=== PATIENT | male | born 1995 | race African-American/Black ===

== ENCOUNTER 2016-11-20 00:29 | Emergency (ER) | payer SELFPAY ==
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
[2016-11-20 06:26] VITALS: BP 130/87
== END 2016-11-20 06:53 | disposition home or self-care (01) ==
LOC: ED 00:29
DX: F19.10 Other psychoactive substance abuse, uncomplicated (principal)
CPT/HCPCS: 99282

== ENCOUNTER 2017-01-14 11:29 | Emergency (ER) | payer SELFPAY ==
[2017-01-14 12:37] VITALS: BP 144/85
== END 2017-01-14 14:28 | disposition left against medical advice (07) ==
LOC: ED 11:29
DX: K08.89 Other specified disorders of teeth and supporting structures (principal); Z53.21 Procedure and treatment not carried out due to patient leaving prior to being seen by health care provider
CPT/HCPCS: 99281

== ENCOUNTER 2017-12-15 22:44 | Emergency (ER) | payer SELFPAY ==
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
--- NOTE | 2017-12-16 05:45 | ED ---
Progress - Progress Note Progress Note: This is scribe Karl Tapia documenting for attending Sebastián Mauricio MD. Patient is a 22 year old M BIBA to ED with a chief complaint of alcohol intoxication. Patient was signed out from LUIS Chen. I, Dr. Mauricio, personally performed the services described in this documentation as scribed in my presence and it is both accurate and complete. Course/Dx - Diagnoses Provider Diagnoses: Alcohol abuse Discharge - Sign-Out/Discharge Documenting (check all that apply): Sign-Out Patient, Receiving Sign-Out Signing out patient TO: Mago Wynn Receiving patient FROM: Kimberly Woodruff - Waiting for patient to sober up. - Discharge Plan Condition: Stable Referrals: No Primary Care Phys,NOPCP [Primary Care Provider] -
--- NOTE | 2017-12-16 08:03 | ED ---
Progress - Progress Note Progress Note: This is scribe Karl Tapia documenting for attending Sebastián Mauricio MD. Patient is a 22 year old M BIBA to ED with a chief complaint of alcohol intoxication. Patient was signed out from LUIS Chen. I, Dr. Mauricio, personally performed the services described in this documentation as scribed in my presence and it is both accurate and complete. UPDATE: Patient is a sign out from Dr. Yoon. He was brought in by ambulance with complaint of alcohol intoxication via friends who found him passed out on the lawn. He is awake alert and oriented to person place and time since waking. He reports he was drinking Bacardi last night with friends at a house [employer] and was not aware that he had passed out in the lawn. He denies any known injury and denies any pain at this current point in time. Furthermore, he denies suicidal or homicidal ideations and reports his mood is well overall. He lives with his mom, completed and a few years at [employer]. He works at [email or web address] and [employer], smokes 1/2 PPD and uses marijuana. No other health issues to report and no known fam h/o medical issues. Vitals WNL GEN: A&O X 3 HEENT: oral mucosa dry, sclera erythematous ("blood shot"), SANDIP, EOMI and acuity intact, no hemotympanum, no d/c or signs of trauma to face or resp passages CARDIAC: S1/S2, RRR PULM:breathing easily, CTA B/L AB: soft, NT, + BS LUCAS: FROM w/o pain or restriction INTEG: well perfused, no wounds or signs of trauma EXTREMITIES: well perfused, no edema NEURO: CN II-XII grossly intact PSYCH: pleasant, calm, polite, denies SI/HI Dx: ETOH intoxication Course: upon resting for 8.5 hours and tolerating PO liquids, pt is A&0 w/o s/ sx of trauma/infection/psych instability. Condition: stable Dispo: home Course/Dx - Course Course Of Treatment: To 84 Obtained alcohol serum level. Attempted to obtain drug urine screen. Patient was only arousable to pain time of arrival. No nausea vomiting while in ER. Patient was signed out to Dr Mauricio at shift change pending patient alcohol seurm level to decrease as it was 284, and become sober enough to go home. No signs of trauma or other signs of injury requiring further work up at this time however pending patient's wake up may need further attention if has any complaints. - Diagnoses Provider Diagnoses: Alcohol abuse Discharge - Sign-Out/Discharge Documenting (check all that apply): Receiving Sign-Out Receiving patient FROM: Sebastián Mauricio - Discharge Plan Condition: Stable Disposition: HOME Patient Education Materials: Alcohol Intoxication (ED) Referrals: [facility] [Outside] Additional Instructions: Rehydrate with water, gatorade, juice, soup broth, etc Rest Follow-up with PCP if you feel your drinking is a problem in your life - call today to schedule an appointment *If you develop chest pain, shortness of breath, syncope or involuntary muscle contractions return to the ED - Billing Disposition and Condition Condition: STABLE Disposition: Home
[2017-12-16 08:25] VITALS: BP 125/79
== END 2017-12-16 08:25 | disposition home or self-care (01) ==
LOC: ED 22:44
DX: F10.129 Alcohol abuse with intoxication, unspecified (principal); F17.210 Nicotine dependence, cigarettes, uncomplicated; Y90.4 Blood alcohol level of 80-99 mg/100 ml
CPT/HCPCS: 36415; 80320; 99284; G0480